=== PATIENT | male | born 1965 | race Caucasian/White ===

== ENCOUNTER 2018-08-16 14:55 | Emergency (ER) | payer SELFPAY ==
[~2018-08-16] VITALS: Ht 172.7 cm; Wt 116.1 kg
[2018-08-16 14:58] VITALS: BP 141/81; Ht 172.7 cm; Wt 116.1 kg
== END 2018-08-16 16:33 | disposition home or self-care (01) ==
LOC: ED 14:55
DX: S21.112A Laceration without foreign body of left front wall of thorax without penetration into thoracic cavity, initial encounter (principal); E11.9 Type 2 diabetes mellitus without complications; W26.8XXA Contact with other sharp object(s), not elsewhere classified, initial encounter; Y93.89 Activity, other specified; Y92.89 Other specified places as the place of occurrence of the external cause; Y99.8 Other external cause status
CPT/HCPCS: 90715